=== PATIENT | female | born 1995 | race Caucasian/White ===

== ENCOUNTER 2019-01-09 15:11 | Inpatient (IN) | payer MEDICAID ==
[~2019-01-09] VITALS: Ht 157.5 cm; Wt 92.0 kg
[2019-01-09] MEDS ORDERED: LORazepam 2 MG TABLET PO PRN (18:45)
[2019-01-09] MEDS ORDERED: ZOLPIDEM TARTRATE 10 MG TABLET PO PRN (18:45)
[2019-01-09] MEDS ORDERED: HALOPERIDOL 5 MG TABLET PO PRN (18:45)
[2019-01-09] MEDS: FLUoxetine HCL 20 MG CAPSULE PO SCH (19:15)
[2019-01-09 19:56] VITALS: BP 118/79
[2019-01-09] MEDS ORDERED: INFLUENZA VIRUS VACCINE QVS 2019-20 (3YR+)/PF 60 MCG/0.5 ML SYRINGE IM ONE (20:45)
[2019-01-10] MEDS ORDERED: LOPERAMIDE HCL 2 MG CAPSULE PO PRN (07:45)
[2019-01-10] MEDS ORDERED: MAGNESIUM HYDROXIDE SUSPENSION 30 ML UDCUP PO PRN (07:45)
[2019-01-10] MEDS ORDERED: DOCUSATE SODIUM 100 MG CAPSULE PO PRN (07:45)
[2019-01-10] MEDS ORDERED: ONDANSETRON HCL 4 MG TABLET PO PRN (07:45)
[2019-01-10] MEDS ORDERED: IBUPROFEN 400 MG TABLET PO PRN (07:45)
[2019-01-10] MEDS ORDERED: PETROLATUM,WHITE 28 GM JELLY TP PRN (07:45)
[2019-01-10] MEDS ORDERED: ALBUTEROL SULFATE HFA 90 MCG/PUFF 8 GM INHALER IH PRN (07:45)
[2019-01-10] MEDS ORDERED: ACETAMINOPHEN 325 MG TABLET PO PRN (07:45)
[2019-01-10] MEDS ORDERED: GuaiFENesin/D-METHORPHAN [SUGAR-FREE] 200-20MG/10 ML SYRUP UDCUP PO PRN (07:45)
[2019-01-10] MEDS ORDERED: NICOTINE 14 MG/24 HOUR PATCH TD PRN (07:45)
[2019-01-10] MEDS ORDERED: CloNIDine HCL 0.1 MG TABLET PO PRN (07:45)
[2019-01-10] MEDS ORDERED: MAG HYDROX/AL HYDROX/SIMETH ES 30 ML SUSPENSION UDCUP PO PRN (07:45)
[2019-01-10 07:51] VITALS: BP 112/77
[2019-01-10] MEDS: FLUoxetine HCL 20 MG CAPSULE PO SCH (08:10)
[2019-01-10 08:57] VITALS: BP 112/77
[2019-01-10 17:07] VITALS: BP 115/63
[2019-01-11] MEDS ORDERED: MULTIVITAMINS, THERAPEUTIC TABLET PO SCH (09:00)
[2019-01-11] MEDS: FLUoxetine HCL 20 MG CAPSULE PO SCH (09:37)
[2019-01-11] MEDS ORDERED: FLUO10CA21 PO (10:36)
[2019-01-11 11:33] VITALS: BP 134/74
== END 2019-01-11 13:30 | disposition home or self-care (01) | DRG 885 ==
LOC: 3EC 16:30 → 3EI 01-10 12:43
PROVIDERS: ADMIT Psychiatry & Neurology Child & Adolescent Psychiatry; ATTEND Psychiatry & Neurology Child & Adolescent Psychiatry
DX: F33.2 Major depressive disorder, recurrent severe without psychotic features (principal); F10.10 Alcohol abuse, uncomplicated; Z79.899 Other long term (current) drug therapy; Y90.9 Presence of alcohol in blood, level not specified; Z53.20 Procedure and treatment not carried out because of patient's decision for unspecified reasons
CPT/HCPCS: 87081

== ENCOUNTER 2024-11-28 02:09 | Emergency (ER) | payer MEDICAID ==
[~2024-11-28] VITALS: Ht 157.5 cm; Wt 52.7 kg
[~2024-11-28 02:09] MED LIST: FLUO10CA51 PO
[2024-11-28 02:13] VITALS: BP 120/70; PULSE 60; RESP 15; TEMP 98.3; O2SAT 98
[2024-11-28] MEDS: IBUPROFEN 400 MG TABLET PO ONE (02:15)
[2024-11-28] MEDS: ACETAMINOPHEN 500 MG TABLET PO ONE (02:15)
[2024-11-28] MEDS: ONDANSETRON 4 MG TABLET PO ONE (04:41)
== END 2024-11-28 04:00 | disposition home or self-care (01) ==
LOC: EMS 02:14
DX: S01.81XD Laceration without foreign body of other part of head, subsequent encounter (principal); R51.9 Headache, unspecified; X58.XXXD Exposure to other specified factors, subsequent encounter; Z79.899 Other long term (current) drug therapy; Z98.890 Other specified postprocedural states
CPT/HCPCS: 99284; Q0162